=== PATIENT | female | born 1990 | race Caucasian/White ===

== ENCOUNTER 2019-10-12 20:24 | Inpatient (IN) | payer BC, OTHER ==
[2019-10-13] MEDS ORDERED: METHYLERGONOVINE 0.2MG/ML AMP IM PRN (01:17)
[2019-10-13] MEDS ORDERED: PENICILLIN 5 MU in NA CHLORIDE 0.9% 100 ML IV ONE (01:17)
[2019-10-13] MEDS ORDERED: Ringers Lactate 1,000 ML IV PRN (01:17)
[2019-10-13] MEDS ORDERED: PROMETHAZINE INJ 25 MG/ML AMP IM PRN (01:17)
[2019-10-13] MEDS ORDERED: CARBOPROST TROME 250 MCG/ML IM PRN (01:17)
[2019-10-13] MEDS ORDERED: BUTORPHANOL 1 MG/ML INJ IV PRN (01:17)
[2019-10-13 01:38] VITALS: BMI 31.9
[2019-10-13 01:47] LABS: Absolute Lymphocytes (CBC) 2.9 K/uL (0.7-4.9); Basophils % 0.4 % (0-1.3); Hematocrit 36.4 % (36.0-45.0); Lymphocytes % 21.5 % (15.3-44.8); MPV 9.1 fL (7.6-11.3); RBC Red Blood Cell Count 4.13 M/uL (3.86-4.86)
[2019-10-13] MEDS ORDERED: Ringers Lactate 1,000 ML IV SCH (02:00)
[2019-10-13] MEDS ORDERED: OXYTOCIN/LR 20 UNITS/1,000 ML BAG IV SCH (02:00)
[2019-10-13 02:02] LABS: Urine Appearance CLOUDY; Urine Bilirubin NEGATIVE (NEG); Urine Blood TRACE (NEG); Urine Color YELLOW; Urine Glucose NEGATIVE (NEG); Urine Protein NEGATIVE (NEG); Urine Urobilinogen 0.2 mg/dL (0.2-1.0); Urine pH 6.5 (5.0-7.0)
[2019-10-13 02:03] LABS: Urine Microscopic Reflex ORDER UMIC
[2019-10-13 02:18] LABS: Urine Bacteria >50 /HPF (<20); Urine Culture Reflex Order NOT NEEDED; Urine Mucus 1+ /HPF (NONE SEEN)
[2019-10-13] MEDS ORDERED: PENICILLIN 2.5 MU in NA CHLORIDE 0.9% 100 ML IV SCH (05:00)
[2019-10-13] MEDS ORDERED: PENICILLIN G POT 5 MU/VIAL IV ONE (05:45)
[2019-10-13] MEDS ORDERED: NA CHLORIDE 0.9% 100 ML IV ONE (05:46)
[2019-10-13] MEDS ORDERED: FENTANYL CITR 100 MCG/2 ML IV ONE (07:58)
[2019-10-13] MEDS ORDERED: ROPIVACAINE HCL 2 MG/ML 100ML IV ONE (07:59)
[2019-10-13] MEDS ORDERED: ROPIVACAINE HCL 100 ML IV ONE (07:59)
[2019-10-13] MEDS ORDERED: BUPIVACAINE 0.25% PF 10 ML VIAL IV ONE (08:13)
[2019-10-13] MEDS ORDERED: FENTANYL CITR 100 MCG/2 ML ONE (08:23)
--- NOTE | 2019-10-13 09:04 | PREOPHP ---
Date of Admission: 10/13/2019 29-year-old 3, para 2, scheduled for induction next Wednesday, 38 weeks, 2-3 days, came in mukund y labor. Has progressed to 5 cm, but she is still posterior and the baby still -2 station. She is h aving back labor. She will start performing pelvic rocks. She is denisse on her own about every 5 minutes. We will start Pitocin sometime a little bit later, but she is making progress. Right no w, we will use monitor. She has had 2 doses of penicillin as she was beta strep positive. Full labo r talk given. Patient probably will be requesting epidural. KARY/ALAN Voice ID: [id number]
[2019-10-13] MEDS ORDERED: OXYTOCIN/LR 20 UNIT/1,000 ML BAG IV ONE (09:07)
[2019-10-13] MEDS ORDERED: CARBOPROST TROME 250 MCG/ML IM ONE (11:34)
[2019-10-13] MEDS ORDERED: METHYLERGONOVINE 0.2MG/ML AMP IM ONE (11:34)
[2019-10-13] MEDS ORDERED: LIDOCAINE 1% MPF 30 ML VIAL ONE (11:35)
[2019-10-13] MEDS ORDERED: Oxycodone HCl/Acetaminophen 1 TAB TAB PO PRN ×2 (11:51)
[2019-10-13] MEDS ORDERED: IBUPROFEN 200 MG TAB PO PRN (11:51)
[2019-10-13] MEDS ORDERED: DIPHENHYDRAMINE 25 MG TAB/CAP PO PRN (11:51)
[2019-10-13] MEDS ORDERED: BISACODYL 10 MG RECTAL SUPP RC PRN (11:51)
[2019-10-13] MEDS ORDERED: DOCUSATE NA/SENNA CONC 1 TAB PO PRN (11:51)
[2019-10-13] MEDS ORDERED: OXYTOCIN/LR 20 UNIT/1,000 ML BAG IV SCH (12:00)
[2019-10-13] MEDS ORDERED: IBUPROFEN 600 MG TAB PO PRN (12:22)
[2019-10-13] MEDS: ACETAMINOPHEN 500 MG TAB PO PRN ×2 (14:25→22:26)
--- NOTE | 2019-10-13 14:40 | PN ---
Patient now has an epidural, is quite comfortable. She is 5.5 cm, vertex, -1 station, 70% to 80% eff aced, rupture of membranes, very clear fluid. I think it will start making more rapid progress. Helen wood is quite comfortable at this point. KARY/ALAN Voice ID: [id number] Report ID: [id number]
[2019-10-14 02:26] LABS: RPR (Rapid Plasma Reagin) NON-REACT (NON-REACT)
[2019-10-14 08:00] VITALS: BP 127/82; TEMP 97.5
[2019-10-14] MEDS ORDERED: Tdap (Diph,Pertuss(Acell),Tet Vac) 0.5 ML SYR IMVAC ONE (09:13)
[2019-10-14] MEDS: ACETAMINOPHEN 500 MG TAB PO PRN (09:45)
--- NOTE | 2019-10-15 08:31 | DS ---
Date of Discharge: 10/14/2019 Hospital Course: rBia Garland, 29-year-old, 3, para 2, 38 weeks 3 days. Delivered a 7 poun ds 7 ounces female, Apgars 9 and 9. Epidural anesthesia. No episiotomy. No laceration. Naldo morfin elivery of the placenta, which was inspected and noted to be intact and normal. Less than 100 cc blo od loss. Beta strep positive, had 2 doses of penicillin during the labor. ; afebrile, amb ulating and voiding. Lochia is normal. Requests no analgesics on dismissal. No post epidural probl ems. She will get her Tdap shot before she leaves the hospital. Final Diagnoses: Term intrauterine at 38 weeks 3 days, vaginal delivery, epidural anesthes ia. Tdap pending. KARY/ALAN Voice ID: [id number] Report ID: [id number]
--- NOTE | 2019-10-16 07:05 | OP ---
Surgeon: Alexandr Abreu MD A 29-year-old 3, para 2, 38 weeks 3 days, came in with labor, rupture of membranes at approxi mately 4.5 to 5 cm after epidural had been established. Rh positive. Rubella immune. Beta strep po sitive. Had 2 doses of penicillin during the labor. Second stage of basically 1 set of pushes. Spo ntaneous vaginal delivery of a 7-pound 7-ounce female, Apgars 9 and 9. No episiotomy. No laceration s. Schultze delivery of the placenta. Placenta inspected and noted be intact and normal. Less than 100 cc blood loss. Patient tolerated all procedures well. Final Diagnoses: Term intrauterine at 38 weeks 3 days, spontaneous labor, vaginal delivery , epidural anesthesia, penicillin prophylaxis. KARY/KRUPAL Voice ID: [id number] Report ID: [id number]
[2019-10-17 02:44] LABS: HBsAG Nonreactive (Nonreactive)
== END 2019-10-14 13:15 | disposition home or self-care (01) | DRG 807 ==
LOC: L&D 20:24 → 2ND-WC 10-13 00:57
PROVIDERS: ADMIT Specialist; ATTEND Specialist
PROC: 10E0XZZ Delivery of Products of Conception, External Approach (ICD-10-PCS; principal; 2019-10-13)
PROC: 10907ZC Drainage of Amniotic Fluid, Therapeutic from Products of Conception, Via Natural or Artificial Opening (ICD-10-PCS; 2019-10-13)
DX: O99.824 Streptococcus B carrier state complicating childbirth (principal); Z37.0 Single live birth; Z3A.38 38 weeks gestation of pregnancy; Z23 Encounter for immunization
CPT/HCPCS: 36415; 81003; 81015; 85025; 86592; 86850; 86900; 86901; 87340; 90471; 90715; J2210; J2590; J2795; J3010; J7120

== ENCOUNTER → 2023-07-07 | Day surgery (SDC) | payer BC, OTHER ==
--- NOTE | 2023-07-07 11:57 | RAD REPORT ---
EXAM DESCRIPTION: US - Guided FNA Non Breast - 07/07/2023 10:10 am CLINICAL HISTORY: E04.1 COMPARISON: No comparisonsNo comparisons FINDINGS: Preoperative diagnosis: Right thyroid nodule. Post operative diagnosis: Same. Conscious Sedation: None Fluoroscopy time: None Contrast used: None Estimated blood loss: Minimal Specimens:As below Informed consent was obtained following discussion of the risks and benefits with the patient. Time-o ut procedure was performed. The anterior was prepped and draped in the usual sterile fashion. 1% lido tank was infiltrated into the subcutaneous tissues for local anesthesia. Real time ultrasound scanni ng of the right thyroid lobe demonstrated a heterogeneous solid 1.5 x 0.9 x 1.2 cm. Under ultrasound guidance, using a variety of long and short 25 gauge needles, 5 fine needle aspiration specimens were obtained of this lesion and sent to pathology for evaluation. There were no complications. The area was dressed with a Band-Aid. Patient was discharged with no significant pain. IMPRESSION: Successful ultrasound-guided right thyroid nodule fine needle aspiration/biopsy.
== END ==
LOC: FNA 09:01
PROVIDERS: ATTEND Otolaryngology
PROC: 0GBH3ZX Excision of Right Thyroid Gland Lobe, Percutaneous Approach, Diagnostic (ICD-10-PCS; principal; 2023-07-07)
DX: E04.1 Nontoxic single thyroid nodule (principal)
CPT/HCPCS: 88108; 88162; 88305